=== PATIENT | female | born 1970 | race Caucasian/White ===

== ENCOUNTER 2022-11-24 04:13 | Day surgery (SDC) | payer BC, OTHER ==
[2022-11-20 17:24] VITALS: BMI 29.1
[2022-11-24] MEDS ORDERED: BUPIVACAINE HCL/PF 0.25% (2.5MG/ML) 10 ML VIAL ONE (07:41)
[2022-11-24] MEDS ORDERED: LIDOCAINE HCL/PF 1% SDV 5ML VIAL ONE (07:42)
[2022-11-24] MEDS ORDERED: DEXAMETHASONE SOD PHOSPHATE 10 MG/1 ML VIAL ONE (07:42)
[2022-11-24] MEDS ORDERED: TRIAMCINOLONE ACET 40MG/1ML VIAL ONE (13:26)
[2022-11-24] MEDS ORDERED: LIDOCAINE 1% P/F 10 MG/ML VIAL INF ONE (13:53)
[2022-11-24] MEDS ORDERED: DEXAMETHASONE SOD PHOSPHATE 10 MG/1 ML VIAL IVPUSH ONE (13:54)
[2022-11-24] MEDS ORDERED: BUPIVACAINE HCL/PF 2.5 MG/ML - 30 ML VIAL IJ ONE (13:54)
[2022-11-24] MEDS ORDERED: IOHEXOL 180 MG/1 ML ML IJ ONE (14:01)
[2022-11-24] MEDS ORDERED: ACETAMINOPHEN 500 MG TABLET (FP) PO PRN (14:18)
[2022-11-24 14:49] VITALS: RESP 18
[2022-11-24 15:23] VITALS: BP 100/63; PULSE 65; TEMP 97.3
== END 2022-11-24 15:35 | disposition home or self-care (01) ==
LOC: JASU-SURG 04:13
PROVIDERS: ATTEND Pain Medicine Pain Medicine
PROC: 3E0T33Z Introduction of Anti-inflammatory into Peripheral Nerves and Plexi, Percutaneous Approach (ICD-10-PCS; 2022-11-24)
PROC: 3E0T3BZ Introduction of Anesthetic Agent into Peripheral Nerves and Plexi, Percutaneous Approach (ICD-10-PCS; principal; 2022-11-24 13:30)
DX: G89.4 Chronic pain syndrome (principal)
CPT/HCPCS: 76000-TC-FY; J1100

== ENCOUNTER 2022-12-25 04:00 | Day surgery (SDC) | payer BC, OTHER ==
[2022-12-24 12:00] VITALS: BMI 28.4
[~2022-12-25 04:00] MED LIST: BUPIVACAINE HCL/PF 0.25% (2.5MG/ML) 10 ML VIAL IJ ONE; LIDOCAINE 1% P/F 10 MG/ML VIAL INF ONE
[2022-12-25] MEDS ORDERED: BUPIVACAINE HCL/PF 0.75% 10 ML VIAL ONE (07:27)
[2022-12-25] MEDS ORDERED: LIDOCAINE HCL/PF 1% SDV 5ML VIAL ONE ×2 (07:27→11:38)
[2022-12-25] MEDS ORDERED: DEXAMETHASONE SOD PHOSPHATE 10 MG/1 ML VIAL ONE (07:28)
[2022-12-25] MEDS ORDERED: BUPIVACAINE HCL/PF 0.25% (2.5MG/ML) 10 ML VIAL ONE (11:38)
[2022-12-25] MEDS ORDERED: LIDOCAINE 1% P/F 10 MG/ML VIAL INF ONE (13:43)
[2022-12-25] MEDS ORDERED: DEXAMETHASONE SOD PHOSPHATE 10 MG/1 ML VIAL IM ONE (13:43)
[2022-12-25] MEDS ORDERED: BUPIVACAINE HCL/PF 0.25% (2.5MG/ML) 10 ML VIAL IJ ONE (13:43)
[2022-12-25] MEDS ORDERED: IOHEXOL 180 MG/1 ML ML IJ ONE (13:51)
[2022-12-25 15:21] VITALS: BP 112/66; PULSE 70; RESP 20; TEMP 97
== END 2022-12-25 15:10 | disposition home or self-care (01) ==
LOC: JASU-SURG 04:00
PROVIDERS: ATTEND Pain Medicine Pain Medicine
PROC: 3E0T33Z Introduction of Anti-inflammatory into Peripheral Nerves and Plexi, Percutaneous Approach (ICD-10-PCS; 2022-12-25)
PROC: 3E0T3BZ Introduction of Anesthetic Agent into Peripheral Nerves and Plexi, Percutaneous Approach (ICD-10-PCS; principal; 2022-12-25 14:00)
DX: G90.59 Complex regional pain syndrome I of other specified site (principal)
CPT/HCPCS: 76000-TC-FY; 81025; J1100

== ENCOUNTER 2023-02-16 04:57 | Day surgery (SDC) | payer BC, OTHER ==
[2023-02-11 15:18] VITALS: BMI 28.4
[~2023-02-16 04:57] MED LIST changes: +ACETAMINOPHEN 500 MG TABLET (FP) PO ONE; +DEXAMETHASONE SOD PHOSPHATE 10 MG/1 ML VIAL IM ONE; -LIDOCAINE 1% P/F 10 MG/ML VIAL INF ONE; +LIDOCAINE HCL 1% PRESERVATIVE FREE - 30ML VIAL IJ ONE; +SODIUM CHLORIDE 0.9% 1000 ML INFUS.BAG IVPB ONE
[2023-02-16 09:21] VITALS: RESP 16; TEMP 97.1
[2023-02-16] MEDS ORDERED: BUPIVACAINE HCL/PF 0.25% (2.5MG/ML) 10 ML VIAL IJ ONE (11:59)
[2023-02-16] MEDS ORDERED: IOHEXOL 180 MG/1 ML ML IJ ONE (11:59)
[2023-02-16] MEDS ORDERED: LIDOCAINE HCL 1% PRESERVATIVE FREE - 30ML VIAL IJ ONE (11:59)
[2023-02-16 13:42] VITALS: BP 116/68; PULSE 64
== END 2023-02-16 13:43 | disposition home or self-care (01) ==
LOC: JASU-SURG 04:57
PROVIDERS: ATTEND Pain Medicine Pain Medicine
PROC: 3E0T33Z Introduction of Anti-inflammatory into Peripheral Nerves and Plexi, Percutaneous Approach (ICD-10-PCS; 2023-02-16)
PROC: 3E0T3BZ Introduction of Anesthetic Agent into Peripheral Nerves and Plexi, Percutaneous Approach (ICD-10-PCS; principal; 2023-02-16 10:45)
DX: G89.4 Chronic pain syndrome (principal); G56.40 Causalgia of unspecified upper limb
CPT/HCPCS: 76000-TC-FY; 81025; J1100

== ENCOUNTER 2023-07-16 04:26 | Day surgery (SDC) | payer BC, OTHER ==
[2023-07-14 12:56] VITALS: BMI 28.4
[2023-07-16] MEDS ORDERED: TRIAMCINOLONE ACET 40MG/1ML VIAL ONE (07:41)
[2023-07-16] MEDS ORDERED: BUPIVACAINE HCL/PF 0.25% (2.5MG/ML) 10 ML VIAL ONE ×2 (07:41→14:33)
[2023-07-16] MEDS ORDERED: LIDOCAINE HCL/PF 1% SDV 5ML VIAL ONE (07:41)
[2023-07-16] MEDS ORDERED: DEXAMETHASONE SOD PHOSPHATE 10 MG/1 ML VIAL IM ONE (14:41)
[2023-07-16] MEDS ORDERED: BUPIVACAINE HCL 0.25% 125 MG/50 ML VIAL INF ONE (14:41)
[2023-07-16] MEDS ORDERED: IOHEXOL 180 MG/1 ML ML IJ ONE (14:41)
[2023-07-16] MEDS ORDERED: LIDOCAINE HCL 1% PRESERVATIVE FREE - 30ML VIAL IJ ONE (14:41)
[2023-07-16] MEDS ORDERED: SODIUM CHLORIDE 1,000 ML IV SCH (15:00)
[2023-07-16] MEDS ORDERED: ACETAMINOPHEN 500 MG TABLET (FP) PO PRN (15:01)
[2023-07-16 15:48] VITALS: BP 115/64; PULSE 69; RESP 20; TEMP 97.5
== END 2023-07-16 16:40 | disposition home or self-care (01) ==
LOC: JASU-SURG 04:26
PROVIDERS: ATTEND Pain Medicine Pain Medicine
PROC: BR16YZZ Fluoroscopy of Lumbar Facet Joint(s) using Other Contrast (ICD-10-PCS; 2023-07-16)
PROC: 3E0T3BZ Introduction of Anesthetic Agent into Peripheral Nerves and Plexi, Percutaneous Approach (ICD-10-PCS; principal; 2023-07-16 15:15)
DX: G89.4 Chronic pain syndrome (principal); G56.42 Causalgia of left upper limb
CPT/HCPCS: 76000-TC-FY; 81025; J1100

== ENCOUNTER 2023-08-10 04:38 | Day surgery (SDC) | payer BC, OTHER ==
[2023-08-05 09:13] VITALS: BMI 29.6
[~2023-08-10 04:38] MED LIST changes: -ACETAMINOPHEN 500 MG TABLET (FP) PO ONE; -SODIUM CHLORIDE 0.9% 1000 ML INFUS.BAG IVPB ONE
[2023-08-10] MEDS ORDERED: BUPIVACAINE HCL/PF 0.75% 10 ML VIAL ONE (07:24)
[2023-08-10] MEDS ORDERED: LIDOCAINE HCL/PF 1% SDV 5ML VIAL ONE ×2 (07:25→12:18)
[2023-08-10] MEDS ORDERED: BUPIVACAINE HCL/PF 0.25% (2.5MG/ML) 10 ML VIAL ONE ×2 (07:31→12:19)
[2023-08-10] MEDS ORDERED: ACETAMINOPHEN 500 MG TABLET (FP) PO PRN (10:53)
[2023-08-10] MEDS ORDERED: SODIUM CHLORIDE 1,000 ML IV SCH (11:00)
[2023-08-10] MEDS ORDERED: DEXAMETHASONE SOD PHOSPHATE 10 MG/1 ML VIAL ONE (12:18)
[2023-08-10] MEDS ORDERED: MIDAZOLAM HCL 2 MG/2 ML SINGLE DOSE VIAL ONE (12:22)
[2023-08-10] MEDS ORDERED: ONDANSETRON 4 MG/2 ML VIAL ONE (12:23)
[2023-08-10] MEDS ORDERED: METOCLOPRAMIDE HCL INJECTION 10 MG/2 ML VIAL ONE (12:23)
[2023-08-10] MEDS ORDERED: LIDOCAINE HCL 1% PRESERVATIVE FREE - 30ML VIAL IJ ONE (12:26)
[2023-08-10] MEDS ORDERED: IOHEXOL 180 MG/1 ML ML IJ ONE (12:28)
[2023-08-10] MEDS ORDERED: DEXAMETHASONE SOD PHOSPHATE 10 MG/1 ML VIAL IM ONE (12:33)
[2023-08-10] MEDS ORDERED: BUPIVACAINE HCL/PF 0.25% (2.5MG/ML) 10 ML VIAL IJ ONE (12:33)
[2023-08-10 14:08] VITALS: BP 96/64; PULSE 68; RESP 20; TEMP 97.4
== END 2023-08-10 14:36 | disposition home or self-care (01) ==
LOC: JASU-SURG 04:38
PROVIDERS: ATTEND Pain Medicine Pain Medicine
PROC: 3E0T3BZ Introduction of Anesthetic Agent into Peripheral Nerves and Plexi, Percutaneous Approach (ICD-10-PCS; principal; 2023-08-10 11:15)
DX: G89.4 Chronic pain syndrome (principal); G56.42 Causalgia of left upper limb
CPT/HCPCS: 76000-TC-FY; 81025; J1100

== ENCOUNTER 2024-01-01 16:13 | Emergency (ER) | payer BC, OTHER ==
[2024-01-01 16:19] VITALS: RESP 16; TEMP 98.3; BMI 29.1
[2024-01-01 16:23] VITALS: BP 115/81; PULSE 100
[2024-01-01] MEDS ORDERED: TETRACAINE 0.5% OPHTH SOLN 2 ML BOTTLE ONE ×2 (17:25→17:29)
[2024-01-01] MEDS: TETRACAINE 0.5% HCL 0.6ML DROPPER.BOTTLE OS ONE (17:40)
[2024-01-01] MEDS ORDERED: ACETAMINOPHEN 325 MG TABLET (FP) ONE (17:42)
[2024-01-01] MEDS: ACETAMINOPHEN 325 MG TABLET (FP) PO ONE (17:48)
== END 2024-01-01 18:34 | disposition home or self-care (01) ==
LOC: JER 16:13
DX: H11.32 Conjunctival hemorrhage, left eye (principal); F41.9 Anxiety disorder, unspecified; H53.8 Other visual disturbances; R51.9 Headache, unspecified; R42 Dizziness and giddiness; R11.0 Nausea; W20.8XXA Other cause of strike by thrown, projected or falling object, initial encounter
CPT/HCPCS: 93005; 93010; 99283-25

== ENCOUNTER 2024-02-10 04:28 | Day surgery (SDC) | payer BC, OTHER ==
[2024-02-09 09:37] VITALS: BMI 29.4
[2024-02-10] MEDS ORDERED: LIDOCAINE HCL/PF 1% SDV 5ML VIAL ONE (07:16)
[2024-02-10] MEDS ORDERED: DEXAMETHASONE SOD PHOSPHATE 10 MG/1 ML VIAL ONE (07:16)
[2024-02-10] MEDS ORDERED: BUPIVACAINE HCL/PF 0.25% (2.5MG/ML) 10 ML VIAL ONE (07:16)
[2024-02-10] MEDS: BUPIVACAINE HCL/PF 0.25% (2.5MG/ML) 10 ML VIAL IJ ONE ×2 (11:50)
[2024-02-10] MEDS: LIDOCAINE 1% P/F 10 MG/ML VIAL PNB ONE ×2 (11:50)
[2024-02-10] MEDS: IOHEXOL 180 MG/1 ML ML IJ ONE ×2 (11:50)
[2024-02-10] MEDS: DEXAMETHASONE SOD PHOSPHATE 10 MG/1 ML VIAL IVPUSH ONE ×2 (11:50)
[2024-02-10 12:38] VITALS: PULSE 59; RESP 18
[2024-02-10 12:55] VITALS: BP 106/61; TEMP 97.1
[2024-02-10] MEDS ORDERED: SODIUM CHLORIDE 1,000 ML IV SCH (13:00)
[2024-02-10] MEDS ORDERED: ACETAMINOPHEN 500 MG TABLET (FP) PO PRN (13:01)
== END 2024-02-10 13:09 | disposition home or self-care (01) ==
LOC: JASU-SURG 04:28
PROVIDERS: ATTEND Pain Medicine Pain Medicine
PROC: 3E0T33Z Introduction of Anti-inflammatory into Peripheral Nerves and Plexi, Percutaneous Approach (ICD-10-PCS; 2024-02-10)
PROC: 3E0T3BZ Introduction of Anesthetic Agent into Peripheral Nerves and Plexi, Percutaneous Approach (ICD-10-PCS; principal; 2024-02-10 11:30)
DX: G89.4 Chronic pain syndrome (principal)
CPT/HCPCS: 76000-TC-FY; 81025; J1100

== ENCOUNTER 2024-09-25 16:46 | Emergency (ER) | payer OTHER ==
[2024-09-25 17:20] VITALS: BP 110/69; PULSE 62; RESP 16; TEMP 98.3; BMI 30.4
[2024-09-25] MEDS ORDERED: DIPHTH,PERTUSS(ACELL),TET 0.5 ML DISP.SYRIN IM ONE (18:18)
[2024-09-25] MEDS: DIPHTH,PERTUSS(ACELL),TET 0.5 ML DISP.SYRIN IM ONE (18:19)
== END 2024-09-25 18:36 | disposition home or self-care (01) ==
LOC: JER 16:46 → JERFT 16:46
PROC: 3E0234Z Introduction of Serum, Toxoid and Vaccine into Muscle, Percutaneous Approach (ICD-10-PCS; principal; 2024-09-25)
DX: T22.212A Burn of second degree of left forearm, initial encounter (principal); X58.XXXA Exposure to other specified factors, initial encounter
CPT/HCPCS: 90471; 90715; 99284-25

== ENCOUNTER 2024-11-01 06:25 | Day surgery (SDC) | payer OTHER ==
[2024-11-01] MEDS ORDERED: oxyCODONE HCL 5 MG TABLET PO PRN (08:19)
[2024-11-01] MEDS ORDERED: LACTATED RINGERS SOLUTION 1,000 ML IV SCH (08:30)
[2024-11-01] MEDS ORDERED: PROPOFOL 40 ML ONE (09:30)
[2024-11-01] MEDS ORDERED: MIDAZOLAM HCL 2 MG/2 ML SINGLE DOSE VIAL ONE (09:30)
[2024-11-01] MEDS ORDERED: DEXAMETHASONE SOD PHOSPHATE 4 MG/1 ML VIAL ONE (09:30)
[2024-11-01] MEDS: ceFAZolin SODIUM 1 GM VIAL IVPB ONE (11:46)
[2024-11-01] MEDS ORDERED: IBUPROFEN 400 MG TABLET (FP) PO PRN (12:32)
[2024-11-01] MEDS ORDERED: ONDANSETRON 4 MG/2 ML VIAL ONE (13:12)
[2024-11-01] MEDS: ONDANSETRON 4 MG/2 ML VIAL IVPUSH PRN (13:14)
[2024-11-01] MEDS ORDERED: ACETAMINOPHEN 325 MG TABLET (FP) ONE (14:34)
[2024-11-01] MEDS: ACETAMINOPHEN 325 MG TABLET (FP) PO PRN (14:43)
[2024-11-01 14:47] VITALS: RESP 16; TEMP 97.3
[2024-11-01 17:28] VITALS: BP 91/68; PULSE 68
== END 2024-11-01 16:21 | disposition home or self-care (01) ==
LOC: JASUSAT 06:25
PROVIDERS: ATTEND Specialist
PROC: 0UDB8ZX Extraction of Endometrium, Via Natural or Artificial Opening Endoscopic, Diagnostic (ICD-10-PCS; principal; 2024-11-01 10:00)
DX: N95.0 Postmenopausal bleeding (principal); D25.9 Leiomyoma of uterus, unspecified
CPT/HCPCS: 81025; 88305-TC; 94760